=== PATIENT | female | born 1995 | race African-American/Black ===

== ENCOUNTER 2017-04-08 18:30 | Emergency (ER) | payer SELFPAY ==
[~2017-04-08] VITALS: Ht 167.6 cm; Wt 106.8 kg
[~2017-04-08 18:30] MED LIST: CIPR500T4 PO; PYRI200T4 PO
[2017-04-08 18:58] VITALS: BP 117/74; PULSE 77; RESP 18; TEMP 98.5; O2SAT 100
--- NOTE | 2017-04-08 19:46 | PD ---
HPI Chief Complaint: Abdominal Pain Time Seen by Provider: 19:16 Travel History International Travel<30 days: No Contact w/Intl Traveler<30days: No Traveled to known affect area: No History of Present Illness HPI 22-year-old female with history of PCOS, here with her mom for evaluation of lower abdominal cramping. Symptoms have been going on for last 3 weeks, worse for last couple of days. She has had some nausea but no vomiting. No diarrhea. No history of abdominal surgeries. No urinary symptoms. No vaginal bleeding or discharge. Pain is moderate to severe, intermittent, slightly worse with movement and palpation. She is sexually active with one partner. Her last menstrual period was February 20. PFSH Past Medical History Diminished Hearing: No Immunizations Current: Yes Tetanus Vaccination: < 5 Years Influenza Vaccination: No ?: Unknown LMP: 02/17/18 : 0 Social History Alcohol Use: Yes (OCC) Tobacco Use: Yes (quit) Substance Use: No Allergies-Medications (Allergen,Severity, Reaction): Coded Allergies: No Known Allergies (Verified , 04/08/17) Reported Meds & Prescriptions Reported Meds & Active Scripts Active No Active Prescriptions or Reported Medications Review of Systems Except as stated in HPI: all other systems reviewed are Neg Physical Exam Narrative GENERAL: Well-developed, well-nourished, slightly overweight, comfortable, no apparent distress. SKIN: Focused skin assessment warm/dry. HEAD: Atraumatic. Normocephalic. EYES: Pupils equal and round. No scleral icterus. No injection or drainage. ENT: Mucous membranes pink and moist. CARDIOVASCULAR: Regular rate and rhythm. RESPIRATORY: No accessory muscle use. Clear to auscultation. Breath sounds equal bilaterally. GASTROINTESTINAL: Abdomen soft, nondistended. Mild suprapubic tenderness without peritoneal signs. Rest of abdomen is soft and nontender. Normal bowel sounds. MUSCULOSKELETAL: No obvious deformities. No clubbing. No cyanosis. No edema. NEUROLOGICAL: Awake and alert. No obvious cranial nerve deficits. Motor grossly within normal limits. Normal speech. PSYCHIATRIC: Appropriate mood and affect; insight and judgment normal. Data Data Last Documented VS Vital Signs Date Time Temp Pulse Resp B/P Pulse Ox O2 Delivery O2 Flow Rate FiO2 04/08/17 21:00 72 18 140/70 98 Room Air 04/08/17 18:58 98.5 Orders Urinalysis - C+S If Indicated (04/08/17 19:29) Ed Urine Pregnancytest Poc (04/08/17 19:29) Beta Hcg (Quant/Titer) (04/08/17 19:42) Complete Blood Count With Diff (04/08/17 19:42) Comprehensive Metabolic Panel (04/08/17 19:42) Us Pelvis (Ques Pr/Ect)W Trans (04/08/17 ) Labs Laboratory Tests Test 04/08/17 04/08/17 19:10 19:39 White Blood Count 7.6 TH/MM3 Red Blood Count 4.50 MIL/MM3 Hemoglobin 12.7 GM/DL Hematocrit 36.8 % Mean Corpuscular Volume 81.8 FL Mean Corpuscular Hemoglobin 28.2 PG Mean Corpuscular Hemoglobin 34.5 % Concent Red Cell Distribution Width 14.7 % Platelet Count 359 TH/MM3 Mean Platelet Volume 8.6 FL Neutrophils (%) (Auto) 50.7 % Lymphocytes (%) (Auto) 31.9 % Monocytes (%) (Auto) 13.2 % Eosinophils (%) (Auto) 2.6 % Basophils (%) (Auto) 1.6 % Neutrophils # (Auto) 3.9 TH/MM3 Lymphocytes # (Auto) 2.4 TH/MM3 Monocytes # (Auto) 1.0 TH/MM3 Eosinophils # (Auto) 0.2 TH/MM3 Basophils # (Auto) 0.1 TH/MM3 CBC Comment DIFF FINAL Differential Comment Sodium Level 139 MEQ/L Potassium Level 3.8 MEQ/L Chloride Level 105 MEQ/L Carbon Dioxide Level 25.2 MEQ/L Anion Gap 9 MEQ/L Blood Urea Nitrogen 7 MG/DL Creatinine 0.88 MG/DL Estimat Glomerular Filtration 97 ML/MIN Rate Random Glucose 100 MG/DL Calcium Level 8.8 MG/DL Total Bilirubin 0.3 MG/DL Aspartate Amino Transf 28 U/L (AST/SGOT) Alanine Aminotransferase 45 U/L (ALT/SGPT) Alkaline Phosphatase 71 U/L Total Protein 7.4 GM/DL Albumin 3.5 GM/DL Human Chorionic Gonadotropin, 00190 MIU/ML Quant Urine Color YELLOW Urine Turbidity CLEAR Urine pH 6.0 Urine Specific [place] 1.023 Urine Protein NEG mg/dL Urine Glucose (UA) NEG mg/dL Urine Ketones NEG mg/dL Urine Occult Blood NEG Urine Nitrite NEG Urine Bilirubin NEG Urine Leukocyte Esterase NEG Urine WBC 0-2 /hpf Urine Squamous Epithelial > 8 /hpf Cells Urine Bacteria RARE /hpf Microscopic Urinalysis Comment CULT NOT INDICATED MDM Medical Decision Making Medical Screen Exam Complete: Yes Emergency Medical Condition: Yes Differential Diagnosis , ectopic , appendicitis, ovarian cyst, ovarian torsion, UTI, cystitis Narrative Course Vital signs show heart rate 77, blood pressure 117/74, pulse ox 100% on room air , oral temp of 98.5F. CBC is unremarkable. CMP is unremarkable. UA shows greater than 8 epithelial cells, rare bacteria. Beta hCG is 22,396. Pelvic ultrasound: CONCLUSION: 1. Single IUP identified with estimated age of 6 weeks and one day. heart rate of 110 beats per minute is documented. 2. Small subchorionic hemorrhage. 3. There is a complex right ovarian cystic lesion measuring 19 mm. Patient and the patient's mom were made aware of all findings. She is resting comfortably. Pelvic rest endorsed. She will be started on Macrobid for bacteriuria in . She is stable for discharge home with outpatient follow-up with an DATA ENTRY COORDINATOR doctor this week. Patient informed on when to return to the emergency department. She verbalizes understanding and agreement with plan. Diagnosis Primary Impression: Qualified Code: Z3A.01 - Less than 8 weeks gestation of Additional Impression: Bacteriuria during Referrals: [facility] 3 days Additional Instructions: Follow-up with an DATA ENTRY COORDINATOR doctor this week. Return to the emergency department for worsening symptoms or any other concerns. Scripts Nitrofurantoin Monohydrate Macrocrystals (Macrobid)100 Mg Aev799 Mg PO BID 5 Days Ref 0 Prov:Brijesh Mims MD 04/08/17 Disposition: 01 DISCHARGE HOME Condition: Stable Brijesh Mims MD Apr 08, 2017 19:46
[2017-04-08 19:53] LABS: BLOOD, URINE NEG (NEG); GLUCOSE,URINE NEG (NEG); KETONE, URINE NEG (NEG); NITRITE,URINE NEG (NEG)
[2017-04-08 19:57] LABS: AUTOMATED NEUTROPHIL # 3.9 TH/MM3 (1.8-7.7); BASOPHIL # 0.1 TH/MM3 (0-0.2); BASOPHIL % 1.6 % (0.0-2.0); EOSINOPHIL # 0.2 TH/MM3 (0-0.4); EOSINOPHIL % 2.6 % (0.0-4.0); HEMATOCRIT 36.8 % (35.0-46.0); HEMO FLAGS DIFF FINAL; LYMPH % 31.9 % (9.0-44.0); LYMPHOCYTE # 2.4 TH/MM3 (1.0-4.8); MEAN CELL VOLUME 81.8 FL (80.0-100.0); MEAN CORPUSCULAR HEMOGLOBIN 28.2 PG (27.0-34.0); MEAN CORPUSCULAR HGB CONC 34.5 % (32.0-36.0); MONO % 13.2 % (0.0-8.0); NEUT % 50.7 % (16.0-70.0); PLATELET COUNT 359 TH/MM3 (150-450); RED CELL DISTRIBUTION WIDTH 14.7 % (11.6-17.2); WHITE BLOOD COUNT 7.6 TH/MM3 (4.0-11.0)
[2017-04-08 19:58] LABS: URINE COLOR YELLOW (YELLW/STRAW)
[2017-04-08 20:00] LABS: SQUAMOUS EPITHELIAL CELL URINE > 8 /hpf (0-5); WBC, URINE 0-2 /hpf (0-5)
[2017-04-08 20:01] LABS: BACTERIA, URINE RARE /hpf; COMMENT (UR) CULT NOT INDICATED; CULTURE IF INDICATED CULT NOT INDICATED
[2017-04-08 20:04] LABS: CHLORIDE 105 MEQ/L (98-107); POTASSIUM 3.8 MEQ/L (3.5-5.1); SODIUM (NA) 139 MEQ/L (136-145)
[2017-04-08 20:08] LABS: ANION GAP 9 MEQ/L (5-15); BICARBONATE 25.2 MEQ/L (21.0-32.0); BLOOD UREA NITROGEN 7 MG/DL (7-18)
[2017-04-08 20:11] LABS: ALT (GPT) 45 U/L (10-53); AST (GOT) 28 U/L (15-37); GLOMERULAR FILTRATION RATE 97 ML/MIN (>89)
[2017-04-08 20:13] LABS: TOTAL BILIRUBIN ADULT 0.3 MG/DL (0.2-1.0)
[2017-04-08 20:14] LABS: ALKALINE PHOSPHATASE 71 U/L (45-117)
[2017-04-08 20:29] LABS: BETA HCG QUANT 22396 MIU/ML (0-5)
[2017-04-08 21:00] VITALS: BP 140/70; PULSE 72; RESP 18; O2SAT 98
--- NOTE | 2017-04-08 21:33 | RADRPT ---
EXAM DATE/TIME: 04/08/2017 20:17 [place] COMPARISON: No previous studies available for comparison. INDICATIONS : Pelvic pain. LAB(S): Beta-hC,396 MEDICAL HISTORY : . SURGICAL HISTORY : None. ENCOUNTER: Initial ACUITY: 2 days PAIN SCORE: 4/10 LOCATION: Bilateral pelvis MEASUREMENTS: UTERUS: 7.0 x 5.7 x 4.7 cm ENDOMETRIAL STRIPE: 15 mm RIGHT OVARY: 5.1 x 3.0 x 2.0 cm LEFT OVARY: 2.5 x 1.5 x 1.6 cm FREE FLUID: No CROWN RUMP LENGTH: 0.4 cm = 6 WKS 1 DAYS FHR: 110 BPM FINDINGS: UTERUS: The myometrium has homogeneous echotexture without mass. There is a gestational sac within the endome trial cavity measuring 0.9 x 2.2 x 1.6 cm. Yolk sac is present an embryo is identified with crown-rum p length measurement of 0.4 cm indicating gestational age of 6 weeks and one day. A small crescentic hypoechoic area adjacent to the gestational sac likely represents small subchorionic hemorrhage. RIGHT OVARY: There is a complex cystic lesion in the right ovary measuring 19 mm. LEFT OVARY: Ovary contains no mass or significant cystic lesion. MISCELLANEOUS: No free fluid. CONCLUSION: 1. Single IUP identified with estimated age of 6 weeks and one day. heart rate of 110 beats per minute is documented. 2. Small subchorionic hemorrhage. 3. There is a complex right ovarian cystic lesion measuring 19 mm. Andrzej Grace MD on April 08, 2017 at 21:28 Board Certified Radiologist. This report was verified electronically.
[2017-04-08] MEDS ORDERED: MACR100C2 PO (21:55)
[2017-04-08] MEDS ORDERED: NITROFURANTOIN MONOHYD MACROCR 100 MG CAP PO ONE (22:00)
[2017-04-08 22:12] VITALS: BP 130/75
== END 2017-04-08 22:16 | disposition home or self-care (01) ==
LOC: PHED 18:30
DX: O26.91 Pregnancy related conditions, unspecified, first trimester (principal); E28.2 Polycystic ovarian syndrome; Z3A.01 Less than 8 weeks gestation of pregnancy; Z87.891 Personal history of nicotine dependence
CPT/HCPCS: 76700; 76817; 80053; 81001; 84702; 84703; 85025; 99284

== ENCOUNTER → 2017-07-22 | Emergency (ER) | payer MEDICAID ==
[~2017-07-22] VITALS: Ht 167.6 cm; Wt 108.9 kg
[~2017-07-22] MED LIST changes: -CIPR500T4 PO; +NYST1OIN TOPICAL; +PREN1CAP7 PO; -PYRI200T4 PO
--- NOTE | 2017-07-22 19:40 | PD ---
HPI Chief Complaint contractions Date Seen: Jul 22, 2017 Travel History International Travel<30 Days: No Contact w/Intl Traveler<30Days: No Known Affected Area: No History of Present Illness HPI 22 yo G1 @ 22w1d with care at [facility]. has been uncomplicated. Patient has had elevated/borderline BPs pre- and early . Possible CHTN. No medications. She had intermittent HAs, no visual changes. No current RIVERA. No abdominal pain, +FM. Regular diet. She reports recurrent yeast infections and bacterial vaginosis this . Yesterday she noted spotting after a void and wore a liner. History Past Medical History Narrative Medical Abnormal Pap Smear Tattoo Body Piercing Elevated BPs Obstetric History Obstetric History G1 Past Surgical History Narrative Surgical Oral surgery Family History Family History: Negative Social History Alcohol Use: No Tobacco Use: No Substance Abuse: No Allergies-Medications (Allergen,Severity, Reaction): Coded Allergies: miconazole (Verified Allergy, Mild, Burning, 07/22/17) Home Meds Active Scripts W/O Vit A W/ Fe Fumar (Citranatal [place]) 27-1-260 Mg Cap, 1 CAP PO DAILY for Nutritional Supplement, #30 CAP 4 Refills Prov:Tiffany WaltersP 06/09/17 Discontinued Scripts Nystatin-Triamcinolone (Nystatin-Triamcinolone) 100,000-0.1 Unit/Gm Oint, 1 APPLIC TOPICAL Q12HR for Infection, #15 GM 0 Refills Prov:Tiffany WaltersP 07/13/17 Review of Systems General / Constitutional: No: Fever, Chills Eyes: No: Blurred Vision, Visual changes HENT: Headaches (intermittent HAs, resolved at this time), No: Lightheadedness Cardiovascular: No: Chest Pain or Discomfort, Palpitations Respiratory: No: Cough, Short of Breath Gastrointestinal: No: Nausea, Vomiting, Abdominal Pain Genitourinary: Vaginal Bleeding (spotting yesterday and earlier today), No: Urgency, Frequency, Pelvic Pain Musculoskeletal: No: Limited ROM, Weakness Skin: No Rash, No Itching, No Lesions Neurologic: No: Focal Abnormalities Physical Exam Narrative GENERAL: Well-nourished, well-developed patient. NAD SKIN: Warm and dry. HEAD: Normocephalic and atraumatic. EYES: No scleral icterus. No injection or drainage. ENT: No nasal drainage noted. Mucous membranes pink. Airway patent. NECK: trachea midline. No JVD. CARDIOVASCULAR: Regular rate RESPIRATORY:No accessory muscle use. ABDOMEN/GI: Abdomen soft, non-tender, no rebound, no guarding Gravid GENITOURINARY: External Genitalia: intact and normal in appearance BUS glands: [-] SSE: white discharge. no blood noted. Cervix grossly normal and closed. wet prep obtained FHT's: +FHR EXTREMITIES: No cyanosis or edema. BACK: Nontender without obvious deformity. normal ROM and gait NEUROLOGICAL: Awake and alert. Motor and sensory grossly within normal limits. Normal speech. Data Data Vital Signs Reviewed: Yes Orders Orders Vital Signs (Adult) .ON ADMISSION (07/22/17 19:18) ^ Hydration (07/22/17 19:18) Wet Prep Profile (07/22/17 19:27) Labs Laboratory Tests Test 07/22/17 19:25 Clue Cells (Wet Prep) NONE SEEN (NONE) Vaginal Trichomonas (Wet Prep) NONE SEEN (NONE) Vaginal Yeast (Wet Prep) NONE SEEN (NONE) dip UA NEG MDM Medical Record Reviewed: Yes Narrative Course / MDM 22 weeks Recurrent vaginitis Wet prep NEG Urine dip NEG BPs normal, on chart review she has had slightly elevated BPs pre-preg and early gestation. Suspect chronic hypertension Plan D/c home F/u for OB visit or PRN Diagnosis Diagnosis: Primary Impression: 22 weeks gestation of Additional Impressions: Vaginal discharge during in second trimester Leukorrhea, not specified as infective Disposition: 01 DISCHARGE HOME Condition: Good Susan Malik MD Jul 22, 2017 19:40
== END | disposition home or self-care (01) ==
LOC: HOBED 17:30
DX: O26.892 Other specified pregnancy related conditions, second trimester (principal); N89.8 Other specified noninflammatory disorders of vagina; R51 Headache; Z3A.22 22 weeks gestation of pregnancy
CPT/HCPCS: 87210; 99284

== ENCOUNTER 2018-03-10 22:16 | Emergency (ER) | payer MEDICAID ==
[~2018-03-10 22:16] MED LIST changes: -NYST1OIN TOPICAL
[2018-03-11] MEDS ORDERED: CORTI10A RIGHT EAR (00:18)
[2018-03-11] MEDS ORDERED: AMOX875T PO (00:25)
--- NOTE | 2018-03-11 00:25 | PD ---
HPI Chief Complaint: ENT Complaint Time Seen by Provider: 00:06 Travel History International Travel<30 days: No Contact w/Intl Traveler<30days: No Traveled to known affect area: No History of Present Illness HPI 23-year-old female here for evaluation of right ear pain. Symptoms started 2 days ago. The patient was seen at an urgent care facility yesterday and was prescribed Cortisporin for otitis externa. She states she is having a difficult time getting the eardrops in her ear because of the pain and swelling. She is also having intermittent fevers. She reports having similar episodes about 2 years ago and required an ear wick. Pain is moderate to severe. Hearing is muffled and diminished in her right ear. She denies inserting any foreign bodies into her ear such as Q-tips. PFSH Past Medical History Diminished Hearing: No Immunizations Current: Yes : 0 Social History Alcohol Use: No Tobacco Use: No Substance Use: No Allergies-Medications (Allergen,Severity, Reaction): Coded Allergies: miconazole (Verified Allergy, Mild, Burning, 03/11/18) Reported Meds & Prescriptions Reported Meds & Active Scripts Active Amoxicillin 875 Mg Tab 875 Mg PO BID 10 Days Citranatal [place] ( W/O Vit A W/ Fe Fumar) 27-1-260 Mg Cap 1 Cap PO DAILY Reported Arcuozzl-Jzulfjzcm-TF Otic Drops (Neomycin/Polymyxin/Hydrocortisone) 1 % Soln 4 Drop RIGHT EAR QID Review of Systems Except as stated in HPI: all other systems reviewed are Neg Physical Exam Narrative GENERAL: Well-developed, well-nourished, awake, alert, no apparent distress. SKIN: Focused skin assessment warm/dry. HEAD: Atraumatic. Normocephalic. EYES: Pupils equal and round. No scleral icterus. No injection or drainage. ENT: No nasal bleeding or discharge. Mucous membranes pink and moist. Left external auditory canal and tympanic membrane are normal. Right external auditory canal was significant edema with slight purulent drainage as well as some erythema. I am unable to visualize the tympanic membrane secondary to the edema. No posterior auricular tenderness or mastoid tenderness. No forward propulsion of the ear. NECK: Trachea midline. No JVD. No nuchal rigidity. CARDIOVASCULAR: Regular rate and rhythm. RESPIRATORY: No accessory muscle use. Clear to auscultation. Breath sounds equal bilaterally. MUSCULOSKELETAL: No obvious deformities. No clubbing. No cyanosis. No edema. NEUROLOGICAL: Awake and alert. No obvious cranial nerve deficits. Motor grossly within normal limits. Normal speech. PSYCHIATRIC: Appropriate mood and affect; insight and judgment normal. Data Data Orders Orders Amoxicillin (Trimox) (03/11/18 00:30) Ibuprofen (Motrin) (03/11/18 00:30) [facility] Medical Decision Making Medical Screen Exam Complete: Yes Emergency Medical Condition: Yes Differential Diagnosis Otitis externa, otitis media Narrative Course This is a 23-year-old female with a right otitis externa was prescribed Cortisporin yesterday, however is having a difficult time putting the eardrops in her ear because of the swelling of her ear canal. She is overall very well- appearing. An ear wick was placed in her right ear. I advised that she continue the Cortisporin. I will also start her on amoxicillin. She was advised to follow-up with an ENT physician this week. She was informed on when to return to the emergency department. She verbalizes understanding and agreement with plan. Procedures Procedure Narrative Right ear wick placement: 1.5 cm earwick was placed in the right external auditory canal. Normal saline was applied and the ear wick absorbed the fluid. Tolerated well. No complications. Diagnosis Primary Impression: Otitis externa Qualified Codes: H60.501 - Unspecified acute noninfective otitis externa, right ear Referrals: Samuel Vasquez MD 3 days ENT Primary Care Physician 3 days Additional Instructions: Follow-up with ENT Dr. Vasquez or an ENT of your choice this week. Follow-up with a primary care physician this week. Return to the emergency department for worsening symptoms or any other concerns. Scripts Amoxicillin (Amoxicillin) 875 Mg Tab 875 MG PO BID for Infection for 10 Days, #20 TAB 0 Refills Prov: Brijesh Mims MD 03/11/18 Disposition: 01 DISCHARGE HOME Condition: Stable Brijesh Mims MD March 11, 2018 00:25
[2018-03-11] MEDS ORDERED: IBUPROFEN 600 MG TAB PO ONE (00:30)
[2018-03-11] MEDS ORDERED: AMOXICILLIN 875 MG TAB PO ONE (00:30)
[2018-03-11 00:31] VITALS: PULSE 93; RESP 16; O2SAT 98
== END 2018-03-11 00:36 | disposition home or self-care (01) ==
LOC: PHED 22:16
DX: H60.501 Unspecified acute noninfective otitis externa, right ear (principal); Z88.8 Allergy status to other drugs, medicaments and biological substances
CPT/HCPCS: 99283